=== PATIENT | male | born 1945 | race Caucasian/White ===

== ENCOUNTER 2019-10-04 09:59 | Day surgery (SDC) | payer OTHER, MEDICARE ==
[2019-09-29 14:22] VITALS: BMI 27.3
[2019-10-04 11:52] VITALS: BP 106/53; PULSE 93
[2019-10-04 12:01] VITALS: TEMP 98
--- NOTE | 2019-10-05 17:47 | PATH ---
Surgical Pathology Report Patient Name: PATTI TORIBIO [facility]. Rec. #: [id number] /Age/Gender: 1945 (Age: 73) / M Account: [id number] Location: [facility] Taken: 10/04/2019 Received: 10/04/2019 Reported: 10/05/2019 Physicians: Russell Ring M.D. Specimen(s) Received POLYP CECUM Clinical History History polyps Postoperative diagnosis: Colon polyps, hemorrhoids, diverticulosis Final Diagnosis CECUM, POLYP, BIOPSY: TUBULAR ADENOMA(S). Electronically Signed Chasidy Santiago M.D. Gross Description Received in formalin, labeled "polyp cecum" are 3 urias, irregular portions of soft tissue measuring 0.2 and 0.4 cm. in greatest dimension. The specimens are submitted in toto in one cassette. MLSZ/10/04/2019 sanml/10/04/2019
== END 2019-10-04 12:01 | disposition home or self-care (01) ==
LOC: FASU-ENDO 09:59
PROVIDERS: ATTEND Internal Medicine Gastroenterology
PROC: 0DBH8ZX Excision of Cecum, Via Natural or Artificial Opening Endoscopic, Diagnostic (ICD-10-PCS; principal; 2019-10-04 10:49)
DX: Z86.010 Personal history of colon polyps (principal); D12.0 Benign neoplasm of cecum; K57.30 Diverticulosis of large intestine without perforation or abscess without bleeding; K64.8 Other hemorrhoids
CPT/HCPCS: 88305-TC